=== PATIENT | female | born 1950 | race Caucasian/White ===

== ENCOUNTER 2017-01-31 06:54 | Emergency (ER) | payer MEDICARE ==
[~2017-01-31 06:54] MED LIST: BUPR-86 PO; METO25 PO; ZOCO40TA PO
[2017-01-31 07:02] VITALS: BP 177/93; PULSE 74; RESP 18; TEMP 98; O2SAT 100
[2017-01-31] MEDS ORDERED: SIMV20TA PO (07:08)
[2017-01-31] MEDS ORDERED: METO25TA3 PO (07:08)
[2017-01-31] MEDS ORDERED: DICL75TA PO (07:08)
--- NOTE | 2017-01-31 07:14 | PD ---
HPI Chief Complaint: Dizziness Time Seen by Provider: 07:01 Travel History International Travel<30 days: No Contact w/Intl Traveler<30days: No Traveled to known affect area: No History of Present Illness HPI 66-year-old female complains of dizziness. Patient states that she started having dizziness since yesterday. Patient states that the dizziness is worse with head movement. Patient denies any nausea vomiting. Patient denies any headache. Patient denies any neck pain. Patient denies any chest pain or shortness of breath. Patient denies abdominal pain. Patient states that she has generalized malaise and weakness. Patient denies any focal weakness or numbness of extremity. Patient denies any history of head injury. PFSH Past Medical History Arthritis: Yes Anxiety: Yes Depression: Yes High Cholesterol: Yes Diminished Hearing: No Hypertension: Yes Influenza Vaccination: Yes ?: Not Tubal Ligation: Yes Social History Alcohol Use: No Tobacco Use: No Substance Use: No Allergies-Medications (Allergen,Severity, Reaction): Coded Allergies: Sulfa (Verified Allergy, Intermediate, MOUTHSWELLING, 01/31/17) Vancomycin (Verified Allergy, Intermediate, Itching, 01/31/17) Penicillin (Verified Adverse Reaction, Intermediate, Hives, 01/31/17) Reported Meds & Prescriptions Reported Meds & Active Scripts Active Reported Diclofenac Sodium DR (Diclofenac Sodium) 75 Mg Tabdr 75 Mg PO BID Simvastatin 20 Mg Tab 20 Mg PO DAILY Metoprolol Tartrate 25 Mg Tab 25 Mg PO DAILY Review of Systems General / Constitutional: No: Fever Eyes: No: Visual changes HENT: Positive: Lightheadedness, No: Headaches Cardiovascular: No: Chest Pain or Discomfort Respiratory: No: Shortness of Breath Gastrointestinal: No: Abdominal Pain Genitourinary: No: Dysuria Musculoskeletal: No: Pain Skin: No Rash Neurologic: No: Weakness Psychiatric: No: Depression Endocrine: No: Polydipsia Hematologic/Lymphatic: No: Easy Bruising Physical Exam Narrative GENERAL: Well-nourished, well-developed patient. SKIN: Focused skin assessment warm/dry. HEAD: Normocephalic. EYES: No scleral icterus. No injection or drainage. Pupils 3 mm equal reactive. NECK: Supple, trachea midline. No JVD or lymphadenopathy. CARDIOVASCULAR: Regular rate and rhythm without murmurs, gallops, or rubs. RESPIRATORY: Breath sounds equal bilaterally. No accessory muscle use. GASTROINTESTINAL: Abdomen soft, non-tender, nondistended. MUSCULOSKELETAL: No cyanosis, or edema. BACK: Nontender without obvious deformity. No CVA tenderness. Neurologic exam normal. Data Data Last Documented VS Vital Signs Date Time Temp Pulse Resp B/P Pulse Ox O2 Delivery O2 Flow Rate FiO2 01/31/17 07:31 71 18 157/73 99 Room Air 01/31/17 07:02 98.0 Orders Meclizine (Antivert) (01/31/17 07:15) Complete Blood Count With Diff (01/31/17 07:10) Basic Metabolic Panel (Bmp) (01/31/17 07:10) Urinalysis - C+S If Indicated (01/31/17 07:10) Ct Brain W/O Iv Contrast(Rout) (01/31/17 07:10) Iv Access Insert/Monitor (01/31/17 07:10) Ecg Monitoring (01/31/17 07:10) Oximetry (01/31/17 07:10) Labs Laboratory Tests Test 01/31/17 07:20 White Blood Count 5.4 TH/MM3 Red Blood Count 4.19 MIL/MM3 Hemoglobin 12.5 GM/DL Hematocrit 38.2 % Mean Corpuscular Volume 91.3 FL Mean Corpuscular Hemoglobin 29.9 PG Mean Corpuscular Hemoglobin 32.7 % Concent Red Cell Distribution Width 12.5 % Platelet Count 240 TH/MM3 Mean Platelet Volume 7.9 FL Neutrophils (%) (Auto) 41.4 % Lymphocytes (%) (Auto) 39.3 % Monocytes (%) (Auto) 10.1 % Eosinophils (%) (Auto) 8.2 % Basophils (%) (Auto) 1.0 % Neutrophils # (Auto) 2.3 TH/MM3 Lymphocytes # (Auto) 2.1 TH/MM3 Monocytes # (Auto) 0.5 TH/MM3 Eosinophils # (Auto) 0.4 TH/MM3 Basophils # (Auto) 0.1 TH/MM3 CBC Comment DIFF FINAL Differential Comment Sodium Level 143 MEQ/L Potassium Level 4.0 MEQ/L Chloride Level 109 MEQ/L Carbon Dioxide Level 27.9 MEQ/L Anion Gap 6 MEQ/L Blood Urea Nitrogen 16 MG/DL Creatinine 0.92 MG/DL Estimat Glomerular Filtration 61 ML/MIN Rate Random Glucose 102 MG/DL Calcium Level 8.8 MG/DL MDM Medical Decision Making Medical Screen Exam Complete: Yes Emergency Medical Condition: Yes Interpretation(s) Last Impressions Head CT 01/31/17 0710 Signed Impressions: Service Date/Time: Tuesday, January 31, 2017 07:15 - CONCLUSION: Head CT within normal limits. Tristen Goodson MD 7:58 AM. CBC within normal limit. BMP within normal limit. Differential Diagnosis Differential diagnosis including acute vertigo, electrolyte imbalance, dehydration, TIA, CVA. Narrative Course 66-year-old female with dizziness. The dizziness is worse with head movement. Meclizine 25 Mg by mouth given. Diagnosis Primary Impression: Acute onset of severe vertigo Patient Instructions: General Instructions Additional Instructions: Meclizine as needed for dizziness. Follow-up with personal physician and analytical research program manager. Return if worse. Med/Other Pt SpecificInfo: Prescription(s) given Scripts Meclizine 25 Mg Tab25 Mg PO TID PRN (VERTIGO) #21 TAB Ref 0 Prov:Heber Smith MD 01/31/17 Disposition: 01 DISCHARGE HOME Condition: Stable Heber Smith MD January 31, 2017 07:14
[2017-01-31] MEDS ORDERED: MECLIZINE HCL 25 MG TAB PO ONE (07:15)
[2017-01-31 07:29] LABS: AUTOMATED NEUTROPHIL # 2.3 TH/MM3 (1.8-7.7); BASOPHIL # 0.1 TH/MM3 (0-0.2); EOSINOPHIL # 0.4 TH/MM3 (0-0.4); EOSINOPHIL % 8.2 % (0.0-4.0); HEMATOCRIT 38.2 % (35.0-46.0); HEMO FLAGS DIFF FINAL; LYMPH % 39.3 % (9.0-44.0); LYMPHOCYTE # 2.1 TH/MM3 (1.0-4.8); MEAN CELL VOLUME 91.3 FL (80.0-100.0); MEAN CORPUSCULAR HEMOGLOBIN 29.9 PG (27.0-34.0); MEAN CORPUSCULAR HGB CONC 32.7 % (32.0-36.0); MONO % 10.1 % (0.0-8.0); NEUT % 41.4 % (16.0-70.0); PLATELET COUNT 240 TH/MM3 (150-450); RED BLOOD COUNT 4.19 MIL/MM3 (4.00-5.30); RED CELL DISTRIBUTION WIDTH 12.5 % (11.6-17.2); WHITE BLOOD COUNT 5.4 TH/MM3 (4.0-11.0)
[2017-01-31 07:31] VITALS: BP 157/73; PULSE 71; RESP 18; O2SAT 99
[2017-01-31 07:36] LABS: BICARBONATE 27.9 MEQ/L (21.0-32.0)
--- NOTE | 2017-01-31 07:45 | RADHPO ---
EXAM DATE/TIME: 01/31/2017 07:15 [facility] COMPARISON: No previous studies available for comparison. INDICATIONS : Dizziness and generalized weakness since yesterday. RADIATION DOSE: 65.37 CTDIvol (mGy) MEDICAL HISTORY : Hypertension. SURGICAL HISTORY : None. ENCOUNTER: Initial ACUITY: 1 day PAIN SCALE: 0/10 LOCATION: cranial TECHNIQUE: Multiple contiguous axial images were obtained of the head. Using automated exposure control and adj ustment of the mA and/or kV according to patient size, radiation dose was kept as low as reasonably a chievable to obtain optimal diagnostic quality images. FINDINGS: CEREBRUM: The ventricles are normal for age. No evidence of midline shift, mass lesion, hemorrhage or acute in farction. No extra-axial fluid collections are seen. POSTERIOR FOSSA: The cerebellum and brainstem are intact. The 4th ventricle is midline. The cerebellopontine angle i s unremarkable. EXTRACRANIAL: The visualized portion of the orbits is intact. SKULL: The calvaria is intact. No evidence of skull fracture. CONCLUSION: Head CT within normal limits. Tristen Goodson MD on January 31, 2017 at 7:39 Board Certified Radiologist. This report was verified electronically.
[2017-01-31] MEDS ORDERED: MECL-62 PO (07:59)
[2017-01-31 08:49] LABS: BLOOD, URINE NEG (NEG); GLUCOSE,URINE NEG (NEG); KETONE, URINE NEG (NEG); NITRITE,URINE NEG (NEG); PH, URINE 5.5 (5.0-8.5)
[2017-01-31 08:51] LABS: METHOD OF COLLECTION CLEAN CATCH; URINE COLOR STRAW (YELLW/STRAW)
[2017-01-31 08:59] VITALS: BP 149/73
[2017-01-31 09:00] LABS: COMMENT (UR) CULT NOT INDICATED; CULTURE IF INDICATED CULT NOT INDICATED; SQUAMOUS EPITHELIAL CELL URINE 0-5 /hpf (0-5); WBC, URINE 0-2 /hpf (0-5)
--- NOTE | 2017-01-31 16:27 | EKG ---
Date Performed: 01/31/2017 Time Performed: 06:58:00 PTAGE: 66 years EKG: Sinus rhythm with borderline 1st degree A-V block Possible left atrial abnormality Septal ST changes are nonspeci fic Compared to previous tracing, the patient is no longer bradycardic Borderline ECG PREVIOUS TRACING : 09/25/2003 13.20 DOCTOR: Jeana Hwang Interpretating Date/Time 01/31/2017 16:24:46
== END 2017-01-31 09:04 | disposition home or self-care (01) ==
LOC: PHED 06:54
DX: I10 Essential (primary) hypertension (principal); E78.00 Pure hypercholesterolemia, unspecified
CPT/HCPCS: 70450; 80048; 81001; 85025; 93005